=== PATIENT | male | born 1975 | race Caucasian/White ===

== ENCOUNTER 2022-06-06 15:05 | Emergency (ER) | payer MEDICAID ==
[~2022-06-06] VITALS: Ht 167.6 cm; Wt 80.0 kg
[2022-06-06] MEDS ORDERED: ONDANSETRON HCL 4MG/2ML INJ IV STA (15:12)
[2022-06-06] MEDS ORDERED: HYDRALAZINE 20MG/ML VIAL IV ONE (15:15)
[2022-06-06] MEDS ORDERED: SODIUM CHLORIDE 0.9% 1,000 ML IV ONE (15:15)
[2022-06-06 16:07] LABS: BASOPHILS % 0.3 % (0.0-2.0); EOSINOPHILS % 0.9 % (0.0-5.0); HEMATOCRIT. 46.7 % (42.0-52.0); HEMOGLOBIN. 15.8 g/dL (14.0-18.0); LYMPHOCYTES % 11.1 % (20.0-50.0); MEAN CORPUSCULAR HEMOGLOBIN 31.3 pg (28.0-32.0); MEAN CORPUSCULAR VOLUME 92.3 fL (80.0-94.0); MEAN PLATELET VOLUME 7.5 fl (7.4-10.4); MONOCYTES % 5.6 % (2.0-8.0); NEUTROPHILS % 82.1 % (40.0-76.0); PLATELET 338 x1000/uL (130-400); RED BLOOD CELL COUNT 5.05 mill/uL (4.7-6.1); RED CELL DISTRIBUTION WIDTH 14.1 % (11.6-14.6)
[2022-06-06 16:18] LABS: CHLORIDE 103 mEq/L (98-107)
[2022-06-06 16:27] LABS: ETHANOL BLOOD < 10 mg/dL
[2022-06-06] MEDS ORDERED: HYDRALAZINE 20MG/ML VIAL IV NR (17:09)
[2022-06-06] MEDS ORDERED: ONDANSETRON HCL 4MG/2ML INJ IV NR (17:10)
[2022-06-06] MEDS ORDERED: LORAZEPAM 1MG TABLET PO ONE (17:15)
[2022-06-06] MEDS ORDERED: SODIUM CHLORIDE 0.9% 1000ML BAG (SEPSIS BOLUS) IV NR (18:56)
[2022-06-06] MEDS ORDERED: SODIUM CHLORIDE 0.9% 1000ML BAG (SEPSIS BOLUS) IV ONE (19:00)
[2022-06-06 19:40] LABS: HEMATOCRIT 44.2 % (42.0-52.0); HEMOGLOBIN 14.6 g/dL (14.0-18.0); MEAN CORPUSCULAR HEMOGLOBIN 30.8 pg (28.0-32.0); MEAN CORPUSCULAR VOLUME 93.6 fL (80.0-94.0); PLATELET 318 x1000/uL (130-400); RED BLOOD CELL COUNT 4.73 mill/uL (4.7-6.1); RED CELL DISTRIBUTION WIDTH 14.1 % (11.6-14.6)
[2022-06-06 19:50] LABS: CLARITY URINE CLEAR (CLEAR); COLOR URINE YELLOW (YELLOW); KETONES URINE TRACE (NEGATIVE); LEUKOCYTE ESTERASE URINE NEGATIVE (NEGATIVE); NITRITE URINE NEGATIVE (NEGATIVE); OCCULT BLOOD URINE 1+ (NEGATIVE); PH URINE 5.5 (4.5-8.0); PROTEIN URINE 2+ (NEGATIVE); SPECIFIC GRAVITY URINE 1.025 (1.005-1.030); UROBILINOGEN URINE 0.2 E.U./dL (0.2-1.0)
[2022-06-06 20:01] LABS: ETHANOL BLOOD < 10 mg/dL
[2022-06-06 20:10] LABS: *AMPHETAMINES SCREEN URINE NEGATIVE (NEGATIVE); *BARBITURATES SCREEN URINE NEGATIVE (NEGATIVE); *BENZODIAZEPINES SCREEN URINE NEGATIVE (NEGATIVE); *COCAINE SCREEN URINE NEGATIVE (NEGATIVE); CANNABINOID URINE SCREEN NEGATIVE (NEGATIVE); METHADONE URINE SCREEN NEGATIVE (NEGATIVE); OPIATES URINE SCREEN NEGATIVE (NEGATIVE); PHENCYCLIDINE URINE SCREEN NEGATIVE (NEGATIVE)
[2022-06-06 22:50] VITALS: BP 164/102
== END 2022-06-06 23:00 | disposition short-term general hospital (02) ==
LOC: ER 15:05
DX: I10 Essential (primary) hypertension (principal); R04.0 Epistaxis; R00.0 Tachycardia, unspecified; F10.10 Alcohol abuse, uncomplicated
CPT/HCPCS: 36415; 70450; 71045; 80053; 80305; 80320; 81003; 83605; 83690; 83880; 84145; 84443; 84484; 85025; 85027; 85610; 86850; 86900; 86901; 87040; 87086; 93005; 96360; 96361; 99291; J0360; J2405; J7030; G0480